=== PATIENT | male | born 1975 | race Two or more races ===

== ENCOUNTER 2019-01-26 16:27 | Inpatient (IN) | payer MEDICAID ==
[~2019-01-26] VITALS: Ht 177.8 cm; Wt 68.0 kg
--- NOTE | 2019-01-26 16:35 | NUR ---
BIB39, PICKED UP ON THE STREET, HEROIN OVERDOSE, ALTERED. TO ER BED 3, HOOKED TO MONITOR, CHANGED TO NINO, AWAITING MD LEMUS.
--- NOTE | 2019-01-26 16:40 | NUR ---
DR QUICK AT BEDSIDE
[2019-01-26 17:05] LABS: BASOPHILS % (AUTO) 0.1 % (0.0-2.0); HEMATOCRIT 38 % (39-51); HEMOGLOBIN 13.6 g/dL (13.5-17.5); LYMPHOCYTES # (AUTO) 0.6 /CMM (0.8-4.8); LYMPHOCYTES % (AUTO) 5.9 % (20.0-44.0); MEAN CORPUSCULAR HGB CONC 36 g/dl (31.0-36.0); MEAN CORPUSCULAR VOLUME 88 fL (80-96); MONOCYTES # (AUTO) 2.4 /CMM (0.1-1.30); MONOCYTES % (AUTO) 22.1 % (2.0-12.0); NEUTROPHILS # (AUTO) 7.9 /CMM (1.8-8.9); NEUTROPHILS % (AUTO) 71.9 % (43.0-81.0); PLATELET COUNT (AUTO) 237 /CMM (150-450); RED BLOOD CELL COUNT(AUTO) 4.37 MIL/uL (4.5-6.0)
--- NOTE | 2019-01-26 17:22 | NUR ---
URINE COLLECTED AND SENT TO LAB
[2019-01-26 17:30] LABS: APPEARANCE,URINE Slightly Cloudy (CLEAR); BILIRUBIN,URINE MODERATE (NEGATIVE); BLOOD, URINE Small Ery/uL (NEGATIVE); COLOR,URINE Dark (YELLOW); KETONES,URINE Trace (NEGATIVE); LEUKOCYTE ESTERASE ,URINE Negative (NEGATIVE); NITRITE, URINE Negative (NEGATIVE); PROTEIN,URINE 30 mg/dl (NEGATIVE); UGLUCOSE Negative (NEGATIVE); UROBILINOGEN,URINE 0.2 EU/dL (0.2)
[2019-01-26 17:30] LABS: ALANINE AMINOTRANSFERASE 145 U/L (12-78); ALBUMIN 3.2 g/dL (3.4-5.0); ALKALINE PHOSPHATASE 66 U/L (46-116); ASPARTATE AMINOTRANSFERASE 318 U/L (15-37); BILIRUBIN,DIRECT 1.1 mg/dL (0.0-0.2); BILIRUBIN,TOTAL 2.4 mg/dL (0.2-1.0); CALCIUM, SERUM 9.2 mg/dL (8.5-10.1); CARBON DIOXIDE 31 mmol/L (21-32); CREATININE 2.5 mg/dL (0.6-1.3); GLUCOSE 99 mg/dL (74-106); TOTAL PROTEIN, SERUM 6.9 g/dL (6.4-8.2); UREA NITROGEN, BLOOD 69 mg/dL (7-18)
[2019-01-26 17:32] LABS: CHLORIDE 68 mmol/L (98-107); POTASSIUM 2.3 mmol/L (3.5-5.1); SODIUM SERUM 117 mmol/L (136-145)
[2019-01-26 17:33] LABS: ACETAMINOPHEN < 10 ug/ml (10-30); ALCOHOL, BLOOD < 3 mg/dL (0-0); SALICYLATE < 2.8 mg/dL (2.8-20.0)
[2019-01-26 17:38] LABS: BACTERIA,URINE 2+ /HPF (None Seen); HYALINE CASTS, URINE Few /LPF (None Seen); SQUAMOUS EPITHELIAL CELL,UR None Seen /HPF (None Seen); WBC,URINE NONE SEEN /HPF (0-3)
[2019-01-26 17:44] LABS: BAND % (MANUAL) 1 % (0.0-5.0); LYMPHOCYTES % (MANUAL) 7 % (16-48); MONOCYTES % (MANUAL) 10 % (0-11.0); NEUTROPHILS % (MANUAL) 82 (42-76)
--- NOTE | 2019-01-26 17:48 | NUR ---
CALLED WHEEL PRESS OPERATOR STOCK PLAN ADMINISTRATOR. DR WATSON WAS PAGED
--- NOTE | 2019-01-26 18:04 | NUR ---
STATIC BALANCER CALLED BACK. ER IN PROCEDURE WHEN SHE CALLED BACK. DR WATSON ASKED TO BE PAGED WHEN ER FINISHED
--- NOTE | 2019-01-26 19:01 | NUR ---
CALLED HOUSE SUP FOR ICU BED
--- NOTE | 2019-01-26 19:03 | NUR ---
LAQUITA WAS CALLED. ACETYLENE TORCH BURNER WAS PAGED.
[2019-01-26] MEDS ORDERED: IV Sodium Chloride 3% 500 ML 500 ML IV ONE ×2 (19:30→21:00)
--- NOTE | 2019-01-26 19:35 | NUR ---
ICU BED 261 GIVEN
--- NOTE | 2019-01-26 20:00 | NUR ---
CALLED FOR REPORT. WILL CALLBACK IN 5 MINS.
[2019-01-26 20:02] LABS: URINE SODIUM, RANDOM 11 mmol/l (40-220)
--- NOTE | 2019-01-26 20:11 | NUR ---
REPORT GIVEN TO DESIREE KEN.
[2019-01-26 20:14] LABS: OSMOLALITY,URINE 510 mOS/kg (340-1090)
[2019-01-26 21:00] VITALS: BP 126/84
--- NOTE | 2019-01-26 21:00 | NUR ---
CHEMIC MANGLER NOTE RECEIVED PT AWAKE. ALERT TO NAME WITH NOTED CONFUSION AND GARBLED SPEECH. REORIENTED PATIENT UPON ARRIVAL. ON ROOM AIR AND SATURATING WELL. BREATHING UNLABORED. NOTED PULLING ON IV. BILATERAL SOFT WRIST RESTRAINTS PLACED ON PT WITH MD ORDER OBTAINED. IV'S IN PLACE WITH FLUIDS INFUSING. MERRITT CATHETER IN PLACE AND DRAINING BY GRAVITY. BED IN LOWEST POSITION, LOCKED IN PLACE AND BED ALARM ENABLED. CALL LIGHT WITHIN REACH. AWAITING ORDERS FROM BATCH MIXER MD. WILL CONTINUE TO MONITOR.
[2019-01-26] MEDS ORDERED: ONDANSETRON HCL/PF 4 MG/2 ML VIAL IVP PRN (22:00)
[2019-01-26] MEDS: Thiamine 100 MG in IV D5W 50 ML IV SCH (22:00)
[2019-01-26] MEDS ORDERED: ACETAMINOPHEN 650 MG/SUPP.RECT RC PRN (22:00)
[2019-01-26] MEDS ORDERED: MORPHINE SULFATE INJ 2 MG/ML DISP.SYRIN IV PRN (22:00)
[2019-01-26] MEDS ORDERED: LORAZEPAM INJ 2 MG/ML VIAL IV PRN (22:00)
[2019-01-26] MEDS ORDERED: MVI-12 10ML IV ONE ×2 (22:00→23:28)
[2019-01-26 22:01] VITALS: BP 122/72
[2019-01-26 23:01] VITALS: BP 101/76
[2019-01-26 23:09] LABS: CALCIUM, SERUM 9.1 mg/dL (8.5-10.1); CARBON DIOXIDE 34 mmol/L (21-32); CREATININE 1.8 mg/dL (0.6-1.3); GLUCOSE 88 mg/dL (74-106); MAGNESIUM 2.4 mg/dL (1.8-2.4); PHOSPHORUS 4.2 mg/dL (2.5-4.9); SODIUM SERUM 124 mmol/L (136-145); UREA NITROGEN, BLOOD 64 mg/dL (7-18)
[2019-01-26 23:13] LABS: CHLORIDE 74 mmol/L (98-107); POTASSIUM 2.2 mmol/L (3.5-5.1)
[2019-01-26] MEDS ORDERED: Thiamine 100 MG/ML VIAL ONE (23:13)
--- NOTE | 2019-01-26 23:20 | NUR ---
COUPLING MACHINE OPERATOR NOTE LEFT MESSAGE TO GENERAL SCIENCE TEACHER FOR CRITICAL LAB VALUES K-2.2, CHLORIDE-74, LACTIC ACID-2.3. AWAITING CALL BACK.
[2019-01-26] MEDS ORDERED: Folic acid 1 MG/0.2 ML VIAL ONE (23:29)
[2019-01-26] MEDS: Folic acid 1 MG in IV D5W 50 ML IV SCH (23:57)
[2019-01-27] VITALS (21 sets, daily range): BP systolic 102–151; BP diastolic 43–92
--- NOTE | 2019-01-27 00:30 | NUR ---
FOOD SERVICE STEWARD NOTE AT BEDSIDE.
[2019-01-27] MEDS ORDERED: Potassium Chloride 20 MEQ in IV NS 0.9% 1,000 ML IV PRN (01:00)
[2019-01-27] MEDS: POTASSIUM CL. PREMIX PERIPHER. 50 ML IV SCH ×10 (01:19→15:55)
[2019-01-27] MEDS ORDERED: IV PREMIX NS +20MEQ KCL 1 L IV ONE (01:59)
[2019-01-27 04:51] LABS: EOSINOPHILS % (AUTO) 0.1 % (0.0-6.0); HEMATOCRIT 37 % (39-51); HEMOGLOBIN 13.1 g/dL (13.5-17.5); LYMPHOCYTES # (AUTO) 0.6 /CMM (0.8-4.8); LYMPHOCYTES % (AUTO) 6.2 % (20.0-44.0); MEAN CORPUSCULAR HGB CONC 36 g/dl (31.0-36.0); MEAN CORPUSCULAR VOLUME 89 fL (80-96); MONOCYTES # (AUTO) 2.2 /CMM (0.1-1.30); MONOCYTES % (AUTO) 23.2 % (2.0-12.0); NEUTROPHILS # (AUTO) 6.8 /CMM (1.8-8.9); NEUTROPHILS % (AUTO) 70.5 % (43.0-81.0); PLATELET COUNT (AUTO) 224 /CMM (150-450); RED BLOOD CELL COUNT(AUTO) 4.13 MIL/uL (4.5-6.0); WHITE BLOOD COUNT (AUTO) 9.6 K/uL (4.3-11.0)
[2019-01-27 05:34] LABS: CHOLESTEROL 132 mg/dL (<200); HDL CHOLESTEROL 42 mg/dL (40-60); LDL 59 mg/dL (0-99); THYROID STIMULATING HORMONE 0.991 uIU/mL (0.358-3.74); TRIGLYCERIDES 108 mg/dL (30-150)
[2019-01-27 05:40] LABS: ALANINE AMINOTRANSFERASE 118 U/L (12-78); ALBUMIN 2.9 g/dL (3.4-5.0); ALKALINE PHOSPHATASE 62 U/L (46-116); ASPARTATE AMINOTRANSFERASE 218 U/L (15-37); BILIRUBIN,TOTAL 1.6 mg/dL (0.2-1.0); CALCIUM, SERUM 8.5 mg/dL (8.5-10.1); CARBON DIOXIDE 36 mmol/L (21-32); CREATININE 1.5 mg/dL (0.6-1.3); GLUCOSE 79 mg/dL (74-106); MAGNESIUM 2.6 mg/dL (1.8-2.4); PHOSPHORUS 2.9 mg/dL (2.5-4.9); SODIUM SERUM 124 mmol/L (136-145); TOTAL PROTEIN, SERUM 6.5 g/dL (6.4-8.2); UREA NITROGEN, BLOOD 54 mg/dL (7-18)
[2019-01-27 06:04] LABS: CHLORIDE 79 mmol/L (98-107); POTASSIUM 2.2 mmol/L (3.5-5.1)
--- NOTE | 2019-01-27 06:15 | NUR ---
AUDIT ASSOCIATE NOTE NOTIFIED DR BENTLEY OF K 2.2 AND SODIUM 124. WITH ORDERS OF 4 BAGS OF POTASSIUM OVER 4 HOURS AND START 3% SODIUM CHLORIDE @ 20ML/HR. ORDERS NOTED AND CARRIED OUT. WILL MONITOR.
[2019-01-27] MEDS ORDERED: IV Sodium Chloride 3% 500 ML 500 ML IV ONE (06:30)
--- NOTE | 2019-01-27 07:23 | NUR ---
FRONT COUNTER ATTENDANT NOTE PT REMAINED STABLE DURING SHIFT. NO ACUTE DISTRESS NOTED. ALL NEEDS ATTENDED TO PROMPTLY. KEPT CLEAN AND DRY. ALL SAFETY MEASURES IN PLACE. CALL LIGHT WITHIN REACH. WILL ENDORSE TO NEXT SHIFT FOR CONTINUITY OF CARE.
--- NOTE | 2019-01-27 08:00 | NUR ---
ICU/RN AM SHIFT INITIAL NOTES RECEIVED PT ASLEEP IN BED, PT ALERT TO HIMSELF, MUMBLE WORDS, FOLLOWS COMMAND. NO ACUTE CHANGE OF CONDITION NOTED. ON ROOM AIR SATURATING @ 98%, RESPIRATIONS EVEN & UNLABORED, LUNG SOUNDS CLEAR. ON TELE WITH SINUS RHYTHM, HR 83. WITH ON GOING IV INFUSION OF 10MEQ POTASSIUM CHLORIDE @ 50CC/HR (FIRST BAG HANGED FROM PM SHIFT), ALSO INFUSING 20MEQ POTASSIUM CHLORIDE IN NS @ 80CC/HR, IV SITES PATENT WITH NO S/S OF INFECTION. MERRITT CATHETER INTACT WITH YELLOW URINE OUTPUT, BILATERAL WRISTS RESTRAINTS REMOVED TO CHECK FOR CIRCULATION AND COMFORT THEN PLACED BACK. PT ON NPO STATUS AT THIS TIME. SCHEDULED AM MEDS TO BE GIVEN. CL WITHIN REACHED AND SAFETY MAINTAINED. ON GOING MONITORING.
[2019-01-27] MEDS: PANTOPRAZOLE 40 MG VIAL IV SCH (08:48)
[2019-01-27 09:11] LABS: CALCIUM, SERUM 8.7 mg/dL (8.5-10.1); CREATININE 1.3 mg/dL (0.6-1.3)
--- NOTE | 2019-01-27 09:26 | NUR ---
WOUND CARE CONSULT: PT PRESENTS WITH MULTIPLE BRUISES AND DRY ABRASIONS WELL LEFT PLANTAR HEEL INTACT BLISTER, PRESENT ON ADMISSION. RECOMMEND DPM CONSULT. RECOMMENDATIONS MADE FOR SKIN PROTECTION. DISCUSSED WITH NURSING STAFF. WILL SEE PRN. CURRENT CRISTOFER SCORE IS 16. MD IN AGREEMENT WITH PLAN OF CARE. Addendum: 01/27/19 at 4882 by CANDI PARK WNDNU Amended: Links added.
[2019-01-27] MEDS ORDERED: Z GUARD REMEDY 2 OZ OINT TP PRN (09:30)
[2019-01-27 09:42] LABS: POTASSIUM 2.7 mmol/L (3.5-5.1)
--- NOTE | 2019-01-27 10:43 | NUR ---
ICU/RN ROUNDS - DR. BENOIT UPDATED PT'S CONDITION. PT SEEN & EXAMINED BY DR. BENOIT, WITH VERBAL ORDER RECEIVED TO DISCONTINUE INFUSION OF 3% SODIUM, ORDER NOTED AND CARRIED. ALSO INFORMED MD THAT WILL ORDER STAT K LAB DRAW AFTER THE FINAL INFUSION OF POTASSIUM IS COMPLETED. ORDER NOTED AND CARRIED. CONTINUING MONITORING.
[2019-01-27] MEDS ORDERED: IV NS 0.9% 1,000 ML IV ONE (11:00)
--- NOTE | 2019-01-27 11:36 | NUR ---
Social service consult requested by Dr. Milligan for possible homelessness and heroin OD. SW attempted to meet with pt.however, was informed by JESUS MANUEL Banegas that pt. is not alert and oriented and mumbles nonsensical words. SW to reassess pt. when he is more alert and oriented.
--- NOTE | 2019-01-27 12:00 | NUR ---
ICU/RN NOON ROUNDS PT STILL CONFUSED BUT FOLLOWS COMMAND. NO ACUTE CHANGE OF CONDITION. MONITORING CONTINUED.
[2019-01-27] MEDS: Z GUARD REMEDY 2 OZ OINT TP SCH (12:38)
--- NOTE | 2019-01-27 12:45 | NUR ---
ICU/RN ROUNDS - DR. COWAN PT SEEN & EXAMINED BY DR. COWAN, WITH VERBAL ORDER RECEIVED FOR TX OF LEFT PLANTER HEEL CLOSED BLISTER. TO PROTECT WITH MEPILEX AND OFFLOAD AT ALL TIMES. ORDER NOTED AND CARRIED.
[2019-01-27 13:26] LABS: CALCIUM, SERUM 8.5 mg/dL (8.5-10.1); CREATININE 1.2 mg/dL (0.6-1.3)
[2019-01-27 13:27] LABS: POTASSIUM 2.8 mmol/L (3.5-5.1)
[2019-01-27] MEDS: Potassium Chloride 40 MEQ in IV D5/ 0.9% NACL 1,000 ML IV PRN (14:29)
--- NOTE | 2019-01-27 14:45 | NUR ---
ICU/RN ROUNDS - MORE AWAKE PT NOTED BEING MORE AWAKE AND CONVERSANT, STILL A BIT CONFUSED ON HOW HE END UP IN HERE PER PT HE LIVES IN [place] BY HIMSELF. NOTIFIED FIRE INVESTIGATOR FOR ASSESSMENT. PT GIVEN NEXT OF KIN CONTACT HIS MOTHER ELAN ROSAS @ [phone], PT INFORMATION UPDATED. PT HAS STARTED REGULAR DIET ORDERED. MONITORING. Addendum: 01/27/19 at 1719 by GRACIELA REGAN RN ADDENDUM: PT NOTED NO DIFFICULTY SWALLOWING, NO RISK OF ASPIRATION.
--- NOTE | 2019-01-27 14:53 | NUR ---
CARLA received a call from pt's JESUS MANUEL Banegas informing SW that pt. is alert and oriented. SW met with pt. bedside. Pt. is alert and oriented x 3. Pt. states he resides in [place] at [address] Pt's emergency contact is his mother Leesa Green . Pt. has no recollection of how he got to the [facility] and events that led him here. Pt. denies any heroin use or any other drug use. Pt's toxicology was negative. Pt. states he drinks vodka and sprite mixer daily every 4 to 5 hours. Pt. stated he will needs clothing since all his clothes are wet. Pt. wanted to call his mother. SW informed JESUS MANUEL Banegas who dialed the contact number for the mother and gave pt. the phone. Pt. stated he was hospitalized in [facility] a few weeks ago to but couldn't give any detail information. SW to give pt. clothing prior to discharge.
--- NOTE | 2019-01-27 16:23 | NUR ---
ICU/RN AFTERNOON ROUNDS PM CARE PROVIDED, PT MORE ALERT AND COOPERATIVE, RESTRAINTS REMOVED. PT HAS CONTACTED HIS MOTHER AND WILL BE VISITING HIM. NO OTHER CHANGE OF CONDITION NOTED, NEEDS MET. MONITORING CONTINUED. CL WITHIN REACHED AND SAFETY MAINTAINED.
[2019-01-27 17:11] LABS: URINE SODIUM, RANDOM 14 mmol/l (40-220)
--- NOTE | 2019-01-27 17:57 | NUR ---
ICU/RN DOWNGRADE TELE - REPORT REPORT GIVEN TO NURSE SHEPHERD PT TO BE TRANSPORTED SHORTLY.
[2019-01-27 18:19] LABS: OSMOLALITY,URINE 675 mOS/kg (340-1090)
--- NOTE | 2019-01-27 18:31 | NUR ---
ICU/J2EE ARCHITECT TO TELE1 - ROOM 110 PT ENDORSED TO TELE1 NURSE QUICK TO CONTINUE CARE.
--- NOTE | 2019-01-27 18:31 | NUR ---
tele channel lip stiffener insoles: notes received pt from icu via bed accompanied by icu staff and with 3 members of his family. oriented to room and surroundings. place pt on tele sr=90's. kept comfortable. f/c draining well to gravity. instructed to call for assistance. will endorsed to next shift accordingly. will monitor.
--- NOTE | 2019-01-27 18:45 | NUR ---
tele photographer news: notes pt c/o headache. pt has suppository order only and informed pt that i will call his doctor to change it to by mouth. family remains at bedside. call light within reach.
--- NOTE | 2019-01-27 18:53 | NUR ---
tele buttonhole marker: notes dr. rock called back with order to change tylenol to by mouth with same dose and frequency. order read back and carried out and acknowledged.
--- NOTE | 2019-01-27 19:00 | NUR ---
tele social services: notes bedside report given to raffi (delano) for continuity of care. family remains at bedside.
--- NOTE | 2019-01-27 19:00 | NUR ---
RECIEVED ALERT AND ORIENTATED TO NAME AND PLACE BROTHER AND MOTHER AT THE BEDIDE REVIEW THE CALL LIGHT WITH HIM AND INSTRUCTED NOT TO GET OOB WITH THE NURSE TO ASSIST HIM FOR SAFETY
--- NOTE | 2019-01-27 19:30 | NUR ---
RECIEVED ALERT AND ORIENTATED. NO STATED COMPLAINTS. SMILING NO SOB AT THIS TIME
--- NOTE | 2019-01-27 19:30 | NUR ---
RECIEVED ALERT AND TALKATIVE. ASKING FOR TEA JUICE JELLO AND TO GO TO THE BATHROOM MANY NEEDS, ALL FILLED QUICKLY. SHE REPEATS WHAT SHE WANTS MULTIPLE TIMES NOT LISTENING FOR AN ANSWER. SPEECH CLEAR AND PLEASENT. Addendum: 01/28/19 at 0513 by DEMI UNDERWOOD RN WRONG PATIENT WRONG PATIENT
[2019-01-27] MEDS: ACETAMINOPHEN 325 MG TABLET PO PRN (19:39)
[2019-01-27] MEDS: Thiamine 100 MG in IV D5W 50 ML IV SCH (21:39)
[2019-01-27] MEDS: Folic acid 1 MG in IV D5W 50 ML IV SCH (22:15)
[2019-01-28] VITALS: BP 112/64
[2019-01-28 04:00] VITALS: BP 109/61
--- NOTE | 2019-01-28 05:13 | NUR ---
CLOSING NOTES: MOTHER AND BROTHER CALLED TO LET ME KNOW THEY WILL BE HERE IN THE AM AROUND 10am. ATE A LARGE SNACK 1AM. PLEASENT AND COOPERATIVE, SLEEP IN [facility]. MERRITT DRAINAGE DARK YELLOW. ONLY COMPLAINT THRU THE NIGHT WAS BECKHAM AT THE BEGINNING AND AT THE END OF THE SHIFT RELIEVED WITH TYLENOL PO
[2019-01-28] MEDS: ACETAMINOPHEN 325 MG TABLET PO PRN (05:21)
[2019-01-28 06:50] LABS: CALCIUM, SERUM 8.1 mg/dL (8.5-10.1); CREATININE 0.9 mg/dL (0.6-1.3); MAGNESIUM 2.5 mg/dL (1.8-2.4); PHOSPHORUS 1.1 mg/dL (2.5-4.9)
[2019-01-28 06:56] LABS: THYROID STIMULATING HORMONE 2.854 uIU/mL (0.358-3.74); URIC ACID 6.8 mg/dL (2.6-7.2)
[2019-01-28 07:02] LABS: POTASSIUM 2.8 mmol/L (3.5-5.1)
[2019-01-28 08:00] VITALS: BP 108/67
[2019-01-28] MEDS: SODIUM CHLORIDE 1000 MG TABLET.SOL PO SCH (08:44)
[2019-01-28] MEDS: POTASSIUM CL. PREMIX PERIPHER. 50 ML IV SCH ×4 (08:44→13:50)
[2019-01-28] MEDS: PANTOPRAZOLE 40 MG VIAL IV SCH (08:45)
[2019-01-28] MEDS: Z GUARD REMEDY 2 OZ OINT TP SCH (08:55)
--- NOTE | 2019-01-28 10:31 | NUR ---
MS RN OPENING NOTE RECEIVED PATIENT IN BED. SLEEPING, EASILY AROUSED WITH VERBAL STIMULI. ORIENTED X2. FORGETFUL, UNABLE TO RECALL RECENT EVENTS. ON ROOM AIR, TOLERATING WELL. IN NO APPARENT DISTRESS OR DISCOMFORT AT THIS TIME. RESPIRATIONS EVEN AND UNLABORED. DENIES PAIN AND SOB. PATIENT ON TELE MONITOR WITH SR AT THIS TIME. MERRITT CATHETER IN PLACE, DRAINING CLEAR HERBER COLOR URINE . LEFT AC 20G IVC, SL. RIGHT AC 20G IVC WITH FLUIDS RUNNING AT 75ML/HR, PATENT AND INTACT. PATIENT KEPT CLEAN AND COMFORTABLE. SAFETY MEASURES IN PLACE, BED IN LOW LOCKED POSITION, SIDE RAILS UP X2, CALL LIGHT WITHIN EASY REACH. WILL CONTINUE TO MONITOR.
[2019-01-28 12:00] VITALS: BP 104/72
[2019-01-28] MEDS: FOLIC ACID 1 MG TABLET PO SCH (12:13)
[2019-01-28] MEDS: THIAMINE HCL 100 MG TABLET PO SCH (12:13)
--- NOTE | 2019-01-28 12:13 | NUR ---
CARLA was informed by OKSANAAdrian Corral that pt's has no recollection of where his car is and where he was picked up from when ambulance brought him to [facility]. CARLA researched ER notes and found out that pt. was brought in by [facility]. CARLA did an internet search and was able to locate [facility] linked to Fire Department located at [address] [place] [address]. . CARLA called the fire station number, however there was no answer. CARLA contacted RON Corral and gave her the aforementioned information to give to the family and they can follow up with the fire station.
[2019-01-28] MEDS: Potassium Phosphate meq 11 MEQ in IV NS 0.9% 100 ML IV SCH ×2 (15:21→18:48)
[2019-01-28 16:00] VITALS: BP 103/63
--- NOTE | 2019-01-28 19:15 | NUR ---
LONG TERM ACUTE CARE REGISTERED NURSE CLOSING NOTE PATIENT IN BED. SLEEPING, EASILY AROUSED WITH VERBAL STIMULI. ORIENTED X2. FORGETFUL, UNABLE TO RECALL RECENT EVENTS. ON ROOM AIR, TOLERATING WELL. IN NO APPARENT DISTRESS OR DISCOMFORT AT THIS TIME. RESPIRATIONS EVEN AND UNLABORED. DENIES PAIN AND SOB. PATIENT ON TELE MONITOR WITH SR AT THIS TIME. MERRITT CATHETER IN PLACE, DRAINING CLEAR HERBER COLOR URINE . LEFT AC 20G IVC, SL. RIGHT AC 20G IVC WITH FLUIDS RUNNING AT 75ML/HR, PATENT AND INTACT. PATIENT KEPT CLEAN AND COMFORTABLE. ALL NEEDS ATTENDED, ORDERS RENDERED. SAFETY MEASURES IN PLACE, BED IN LOW LOCKED POSITION, SIDE RAILS UP X2, CALL LIGHT WITHIN EASY REACH. WILL ENDORSE TO PM NURSE FOR PEEWEE.
--- NOTE | 2019-01-28 19:30 | NUR ---
DOCTORATE OF CHIROPRACTIC NOTE: RECEIVED PT ON BED ASLEEP BUT AROUSES EASILY TO VERBAL AND TACTILE STIMULI. NO APPARENT DISTRESS NOTED. DENIES PAIN AND DISCOMFORT AT THIS TIME. NO SOB NOTED. ON TELE MONITOR SINUS RHYTHM HR 94BPM. MERRITT CATH INTACT AND PATENT, DRAINING WELL. IVF INFUSING WELL. KEPT CLEAN, DRY AND COMFORTABLE. CALL LIGHT PLACED WITHIN REACH. SIDE RAILS UP X3. BED ALARM ON. BED LOCKED AND IN LOWEST POSITION. WILL CONTINUE TO MONITOR PT.
[2019-01-28 20:00] VITALS: BP 112/70
[2019-01-29] VITALS: BP 97/67
[2019-01-29 04:00] VITALS: BP 111/67
[2019-01-29 05:40] LABS: BASOPHILS % (AUTO) 0.2 % (0.0-2.0); EOSINOPHILS % (AUTO) 1.8 % (0.0-6.0); HEMATOCRIT 32 % (39-51); HEMOGLOBIN 10.9 g/dL (13.5-17.5); LYMPHOCYTES # (AUTO) 1.3 /CMM (0.8-4.8); LYMPHOCYTES % (AUTO) 19.8 % (20.0-44.0); MEAN CORPUSCULAR HGB CONC 35 g/dl (31.0-36.0); MEAN CORPUSCULAR VOLUME 91 fL (80-96); MONOCYTES # (AUTO) 1.4 /CMM (0.1-1.30); MONOCYTES % (AUTO) 21.6 % (2.0-12.0); NEUTROPHILS # (AUTO) 3.7 /CMM (1.8-8.9); NEUTROPHILS % (AUTO) 56.6 % (43.0-81.0); PLATELET COUNT (AUTO) 252 /CMM (150-450); RED BLOOD CELL COUNT(AUTO) 3.46 MIL/uL (4.5-6.0); WHITE BLOOD COUNT (AUTO) 6.6 K/uL (4.3-11.0)
[2019-01-29 06:03] LABS: ALBUMIN 2.2 g/dL (3.4-5.0); BILIRUBIN,TOTAL 0.8 mg/dL (0.2-1.0); CALCIUM, SERUM 8.1 mg/dL (8.5-10.1); MAGNESIUM 2.1 mg/dL (1.8-2.4); POTASSIUM 3.4 mmol/L (3.5-5.1); TOTAL PROTEIN, SERUM 5.4 g/dL (6.4-8.2)
[2019-01-29 06:06] LABS: LYMPHOCYTES % (MANUAL) 17 % (16-48); MONOCYTES % (MANUAL) 22 % (0-11.0); NEUTROPHILS % (MANUAL) 59 (42-76)
[2019-01-29 06:10] LABS: PHOSPHORUS 0.9 mg/dL (2.5-4.9)
[2019-01-29] MEDS ORDERED: D5W IV SCH ×5 (06:30→07:00)
[2019-01-29] MEDS ORDERED: POTASSIUM PHOSPHATE IV SCH ×5 (06:30→07:00)
--- NOTE | 2019-01-29 06:42 | NUR ---
KNOWLEDGE ARCHITECT NOTE: ABE A CALL FROM LAB REGARDING CRITICAL LOW PHOSPHORUS 0.9. GARIMA ALONZO MADE AWARE AND SHE ORDERED TO GIVE KPHOS 30MMOL IV. ORDER CARRIED OUT.
--- NOTE | 2019-01-29 06:47 | NUR ---
CANVASSING MANAGER NOTE: NO CHANGES NOTED THROUGHOUT THE SHIFT. NO APPARENT DISTRESS NOTED. NO COMPLAINTS OF PAIN OR DISCOMFORT. MERRITT CATH INTACT AND PATENT, DRAINING WELL. SINUS RHYTHM ON TELE MONITOR HR 75BPM. KEPT CLEAN, DRY AND COMFORTABLE. SAFETY AND FALL PRECAUTIONS OBSERVED AND MAINTAINED. WILL ENDORSE TO DAY SHIFT RN FOR CONTINUITY OF CARE
[2019-01-29 08:00] VITALS: BP 122/73
[2019-01-29] MEDS: FOLIC ACID 1 MG TABLET PO SCH (08:39)
[2019-01-29] MEDS: Potassium Phosphate meq 11 MEQ in IV D5W 100 ML IV SCH ×4 (08:39→19:33)
[2019-01-29] MEDS: SODIUM CHLORIDE 1000 MG TABLET.SOL PO SCH (08:39)
[2019-01-29] MEDS: THIAMINE HCL 100 MG TABLET PO SCH (08:39)
[2019-01-29] MEDS: PANTOPRAZOLE 40 MG VIAL IV SCH (08:40)
[2019-01-29] MEDS: Z GUARD REMEDY 2 OZ OINT TP SCH (08:40)
[2019-01-29] MEDS ORDERED: POTASSIUM CHLORIDE 20 MEQ TAB.PRT.SR PO SCH ×2 (10:30→12:00)
[2019-01-29] MEDS: Potassium Chloride 40 MEQ in IV D5/ 0.9% NACL 1,000 ML IV PRN (11:32)
[2019-01-29] MEDS: ACETAMINOPHEN 325 MG TABLET PO PRN (11:39)
[2019-01-29 12:00] VITALS: BP 116/87
[2019-01-29] MEDS: NEUTRA PHOS 1 POWD.PACKET PO SCH ×2 (14:08→16:38)
[2019-01-29 16:00] VITALS: BP 109/74
--- NOTE | 2019-01-29 19:45 | NUR ---
RN TELEPHONIC NOTE: RECEIVED PT ON BED ALERT AND ORIENTED X2, VERBALLY RESPONSIVE. NO APPARENT DISTRESS NOTED. DENIES PAIN AND DISCOMFORT AT THIS TIME. ON ROOM AIR, NO SOB NOTED, SATURATING WELL. ON TELE MONITOR SINUS TACHY HR 109BPM. PERIPHERAL IV INTACT AND PATENT, IVF INFUSING WELL, NO SIGNS/SYMPTOMS OF ASPIRATION NOTED. MERRITT CATH INTACT AND PATENT, DRAINING WELL. KEPT CLEAN, DRY AND COMFORTABLE. SAFETY AND FALL PRECAUTIONS OBSERVED AND MAINTAINED. WILL CONTINUE TO MONITOR PT.
[2019-01-29 20:00] VITALS: BP 122/71
[2019-01-30] VITALS: BP 125/74
[2019-01-30 04:00] VITALS: BP 120/78
[2019-01-30] MEDS: Potassium Chloride 40 MEQ in IV D5/ 0.9% NACL 1,000 ML IV PRN ×2 (05:00→16:40)
--- NOTE | 2019-01-30 06:40 | NUR ---
PICKING MACHINE OPERATOR NOTE: NO CHANGES NOTED THROUGHOUT THE SHIFT. NO ACUTE DISTRESS NOTED. NO COMPLAINTS OF PAIN OR DISCOMFORT. MERRITT CATH INTACT AND PATENT, DRAINING WELL. SINUS RHYTHM ON TELE MONITOR HR 87BPM. KEPT CLEAN, DRY AND COMFORTABLE. SAFETY AND FALL PRECAUTIONS OBSERVED AND MAINTAINED. WILL ENDORSE TO DAY SHIFT RN FOR CONTINUITY OF CARE
[2019-01-30 06:49] LABS: BASOPHILS % (AUTO) 0.4 % (0.0-2.0); EOSINOPHILS % (AUTO) 1.7 % (0.0-6.0); HEMATOCRIT 33 % (39-51); HEMOGLOBIN 11.4 g/dL (13.5-17.5); LYMPHOCYTES # (AUTO) 1.2 /CMM (0.8-4.8); MEAN CORPUSCULAR HGB CONC 35 g/dl (31.0-36.0); MEAN CORPUSCULAR VOLUME 92 fL (80-96); MONOCYTES % (AUTO) 16.5 % (2.0-12.0); NEUTROPHILS # (AUTO) 3.9 /CMM (1.8-8.9); NEUTROPHILS % (AUTO) 62.4 % (43.0-81.0); PLATELET COUNT (AUTO) 312 /CMM (150-450); RED BLOOD CELL COUNT(AUTO) 3.51 MIL/uL (4.5-6.0); WHITE BLOOD COUNT (AUTO) 6.3 K/uL (4.3-11.0)
[2019-01-30 06:54] LABS: CALCIUM, SERUM 8.2 mg/dL (8.5-10.1); CREATININE 0.8 mg/dL (0.6-1.3); PHOSPHORUS 1.1 mg/dL (2.5-4.9); POTASSIUM 3.9 mmol/L (3.5-5.1)
[2019-01-30 08:00] VITALS: BP 126/81
--- NOTE | 2019-01-30 08:00 | NUR ---
BOOK STORE ASSOCIATE NOTES. RECEIVED PT IN BED, NO SOB, A/O X3, ON ROOM AIR, PT ON TELE MONITOR, ST HR 113 ,F/C TO GRAVITY WITH YELLOW COLOR URINE, PT HAS RIGHT UPPER ARM HL INTACT, NO S/S INFECTION, ON IVF ORDERED, PLAN OF CARE DISCUSSED WITH PT, BED LOWEST LOCKED POSITION ,CALL LIGHT WITHIN REACH, SAFETY MEASURED OBSERVED, ATE BREAKFAST SELF ,NO COMPLAINT OF PAIN AT THIS TIME AND WILL CONTINUE TO MONITOR.
[2019-01-30] MEDS: PANTOPRAZOLE 40 MG VIAL IV SCH (08:16)
[2019-01-30] MEDS: FOLIC ACID 1 MG TABLET PO SCH (08:16)
[2019-01-30] MEDS: THIAMINE HCL 100 MG TABLET PO SCH (08:16)
[2019-01-30] MEDS: SODIUM CHLORIDE 1000 MG TABLET.SOL PO SCH (08:16)
[2019-01-30] MEDS: NEUTRA PHOS 1 POWD.PACKET PO SCH ×2 (08:17→12:33)
[2019-01-30] MEDS: Z GUARD REMEDY 2 OZ OINT TP SCH (08:17)
--- NOTE | 2019-01-30 11:25 | NUR ---
CHEF BROILER OR FRY NOTE PATIENT C\O MERRITT CATH DISCOMFORT, PER DR BENTLEY OK TO REMOVE MERRITT WILL F\U
[2019-01-30 12:00] VITALS: BP 127/90
--- NOTE | 2019-01-30 12:35 | NUR ---
CUSTOMER ENGINEERING SPECIALIST NOTE ABLE TO URINATE AFTER MERRITT WAS REMOVE ,ENCOURAGED TO DRINK WATER
--- NOTE | 2019-01-30 15:25 | NUR ---
RECORDS MANAGEMENT COORDINATOR NOTE SEEN BY RAUL KEN CABIN CLEANING SUPERVISOR AWARE THAT MERRITT WAS REMOVED EARLIER NAD MAKING GOOD URINE OUTPUT 200 ML AT THIS TIME ,STATED THAT WILL SEE PATIENT SOON
[2019-01-30 16:00] VITALS: BP 125/78
[2019-01-30] MEDS ORDERED: POTASSIUM PHOSPHATE MM 15 MMOL in IV NS 0.9% 250 ML IV SCH (16:30)
[2019-01-30] MEDS: POTASSIUM PHOSPHATE MM 7.5 MMOL in IV D5W 100 ML IV SCH ×2 (17:41→20:06)
--- NOTE | 2019-01-30 19:15 | NUR ---
DISPATCH CLERK NOTE PATIENT REPORT GIVEN BEDSIDE. PATIENT IN BED Addendum: 01/30/19 at 2018 by MIYA BENJAMIN RN PATIENT A/O X 4 WATCHIG TV. NO S/S OF DISTRESS. PATIENT DENIES CHEST PAIN, SOB, . NO ACUTE CHANGES. PATIENT SR ON THE MONITOR HR 100. PATIENT IV RUNNING KPHOS IN ERMIAS 20G. NO S/S OF INFILTRATION AND INFECTION. PATIENT HAS NO C/O AT THIS. SAFETY PRECAUTIONS IN PLACE. RN WILL CONTINUE TO MONITOR.
[2019-01-30 20:00] VITALS: BP_SYST 128; BP_SYST 145; BP_DIAS 65; BP_DIAS 89
[2019-01-31] VITALS: BP 134/99
--- NOTE | 2019-01-31 00:45 | NUR ---
HAMMER ADJUSTER NOTE BRYNN 20 G IV LEAKING, REMOVED IV SITE. NEW IV STARTED 22 GAUGE IN LFA STARTED. IV PATENT INTACT NO S/S OF INFILTRATION.
--- NOTE | 2019-01-31 04:15 | NUR ---
BRANCH STORE MANAGER NOTE PER PATIENT REQUEST PATIENT " DO NOT WAKE ME TO TAKE MY VITALS IF I AM SLEEPING." PATIENT IS IN ROOM SLEEPING, BREATHING EVEN AND UNLABORED. PATIENT IS SR ON THE MONITOR. SKIN COLOR WNL. CHARGE ELSE AWARE, NO ACUTE S/S OF DISTRESS. RN WILL CONTINUE TO MONITOR.
--- NOTE | 2019-01-31 07:10 | NUR ---
STORE TEAM LEADER OPENING NOTE RECEIVED REPORT FROM PM NURSE .PATIENT ON BED.AXOX4.ON ROOM AIR.NO SOB NO DISTRESS NOTED.ON TELE MONITOR SR.HR 85.IV ON RFA WITH IVF,INTACT AND PATENT.NO INFILTRATION NOTED.BED IS LOW AND IN LOCKED POSITION.CALL LIGHT IN REACH.SRX3.WILL CONTINUE TO MONITOR.
[2019-01-31 07:42] LABS: BASOPHILS % (AUTO) 0.4 % (0.0-2.0); EOSINOPHILS % (AUTO) 1.5 % (0.0-6.0); HEMATOCRIT 35 % (39-51); HEMOGLOBIN 11.7 g/dL (13.5-17.5); LYMPHOCYTES # (AUTO) 1.4 /CMM (0.8-4.8); LYMPHOCYTES % (AUTO) 19.7 % (20.0-44.0); MEAN CORPUSCULAR HGB CONC 34 g/dl (31.0-36.0); MEAN CORPUSCULAR VOLUME 93 fL (80-96); MONOCYTES # (AUTO) 1.3 /CMM (0.1-1.30); MONOCYTES % (AUTO) 17.6 % (2.0-12.0); NEUTROPHILS # (AUTO) 4.3 /CMM (1.8-8.9); NEUTROPHILS % (AUTO) 60.8 % (43.0-81.0); PLATELET COUNT (AUTO) 377 /CMM (150-450); RED BLOOD CELL COUNT(AUTO) 3.73 MIL/uL (4.5-6.0); WHITE BLOOD COUNT (AUTO) 7.1 K/uL (4.3-11.0)
[2019-01-31 07:49] LABS: CALCIUM, SERUM 8.6 mg/dL (8.5-10.1); CREATININE 0.9 mg/dL (0.6-1.3); PHOSPHORUS 1.9 mg/dL (2.5-4.9); POTASSIUM 4.1 mmol/L (3.5-5.1)
[2019-01-31 08:00] VITALS: BP 121/87
[2019-01-31] MEDS: Z GUARD REMEDY 2 OZ OINT TP SCH (08:17)
[2019-01-31] MEDS: SODIUM CHLORIDE 1000 MG TABLET.SOL PO SCH (08:17)
[2019-01-31] MEDS: FOLIC ACID 1 MG TABLET PO SCH (08:17)
[2019-01-31] MEDS: PANTOPRAZOLE 40 MG VIAL IV SCH (08:17)
[2019-01-31] MEDS: THIAMINE HCL 100 MG TABLET PO SCH (08:17)
[2019-01-31 08:21] LABS: BAND % (MANUAL) 2 % (0.0-5.0); EOSINOPHILS % (MANUAL) 2 % (0-4); LYMPHOCYTES % (MANUAL) 20 % (16-48); MONOCYTES % (MANUAL) 15 % (0-11.0); NEUTROPHILS % (MANUAL) 61 (42-76)
[2019-01-31] MEDS ORDERED: NEUTRA PHOS 1 POWD.PACKET PO ONE (08:30)
--- NOTE | 2019-01-31 12:00 | NUR ---
MS RN NOTE SEEN BY VIBRATION TECHNICIAN DIEGO GOT NEW ORDER FOR DISCHARGE PATIENT TO HOME.CLARIFIED HOME MEDICATION WITH VIBRATION TECHNICIAN TO BE CONTINUE.SAID NO MEDICATIONS TO BE CONTINUE AND TO FOLLOW UP WITH PCP IN 1 WEEK AND TO ADJUST FOOD INTAKE TO MANAGE HYPONATREMIA.PATIENT AND FAMILY MADE AWARE.WILL CONTINUE TO MONITOR.
--- NOTE | 2019-01-31 13:35 | NUR ---
MS BENDER MACHINE NOTE PATIENT D/C HOME IN STABLE CONDITION.AXOX4.NO SOB NO DISTRESS NOTED.VITAL SIGNS STABLE.NO C/O PAIN.EXIT CARE GIVEN TO PATIENT AND MOTHER. VERBALIZED UNDERSTANDING.EDUCATION GIVEN.INSTRUCTED TO F/U WITH PCP IN 1 WEEK.IV REMOVED.MINIMAL BLEEDING NOTED.TOOK ALL BELONGINGS AND SIGNED ALL PAPERWORK.OFFERED ESCORT TO LOBBY ,PATIENT REFUSED.LEFT WITH MOTHER ELAN,PHONE #[phone]
== END 2019-01-31 13:35 | disposition home or self-care (01) | DRG 426 ==
LOC: EDBD 16:31 → ER 16:31 → ICU 19:37 → TELE1 01-27 18:16 → MEDSG1 01-31 09:01
PROVIDERS: ADMIT Internal Medicine; ATTEND Hospitalist
DX: E22.2 Syndrome of inappropriate secretion of antidiuretic hormone (principal); N17.0 Acute kidney failure with tubular necrosis; G92 Toxic encephalopathy; E44.0 Moderate protein-calorie malnutrition; Z59.0 Homelessness; E87.2 Acidosis; E83.39 Other disorders of phosphorus metabolism; R29.6 Repeated falls; S00.03XA Contusion of scalp, initial encounter; W19.XXXA Unspecified fall, initial encounter; Y92.009 Unspecified place in unspecified non-institutional (private) residence as the place of occurrence of the external cause; F10.21 Alcohol dependence, in remission; E87.6 Hypokalemia; R74.0 Nonspecific elevation of levels of transaminase and lactic acid dehydrogenase [LDH]; L89.629 Pressure ulcer of left heel, unspecified stage; Z73.6 Limitation of activities due to disability; F19.10 Other psychoactive substance abuse, uncomplicated; S06.9X0A Unspecified intracranial injury without loss of consciousness, initial encounter; S90.822A Blister (nonthermal), left foot, initial encounter; F07.81 Postconcussional syndrome; E86.0 Dehydration
CPT/HCPCS: 36415; 70450-TC; 71045-TC; 72125-TC; 80048-TC; 80053-TC; 80061-TC; 80076-TC; 80305; 81000-TC; 82962-TC; 83605-TC; 83735-TC; 83935-TC; 84100-TC; 84300-TC; 84443-TC; 84484-TC; 84550-TC; 85025-TC; 86803; 87081-TC; 87086-TC; 87806; C9113; G0378; G0480; J3411; J3480; J3490; J7030; J7040; J7042; J7050; J7060